=== PATIENT | female | born 1955 | race Caucasian/White ===

== ENCOUNTER 2023-06-27 19:37 | Emergency (ER) | payer MEDICARE, BC, SELFPAY ==
[2023-06-27 19:45] VITALS: BP 164/105; PULSE 67; RESP 14; TEMP 37.2; O2SAT 96; BMI 24.3
[2023-06-27] MEDS: cefTRIAXone 1 GM VIAL IM (20:22)
[2023-06-27] MEDS: LIDOCAINE 1% 5 ml (pf) 5 ML VIAL 2.1 ML IM (20:23)
--- NOTE | 2023-06-27 20:46 | ED.GENADULT ---
HPI - General Adult General Date Seen: 06/27/23 Chief complaint: Eye Problems Stated complaint: Left eye pain, allergic reaction to eye drops Time Seen by Provider: 06/27/23 19:41 Source: patient and family Mode of arrival: ambulatory Limitations: no limitations History of Present Illness HPI narrative: Patient is a 67-year-old female who comes in at the request of her eye doctor, Dr. Judd. Last evening she developed some eye irritation and excess watering. Throughout the day today she has had increasing pain, purulence, swelling. She had a online visit and was prescribed ofloxacin eye drops and Augmentin. When the pain and swelling continued to get worse she spoke with her eye doctor who instructor to come to the ER. He did call ahead with some instructions for me. He is requesting a Gram stain and culture along with a shot of Rocephin 1 g IM. He had hoped that we could get her started on Cipro ointment but we do not have any of that in the hospital she will have to wait until tomorrow morning to start. She is taking ibuprofen for pain. She has had no fevers or chills. The right eye is uninvolved. Related Data Home Medications Medication Instructions Recorded Confirmed cholecalciferol (vitamin D3) 25 25 mcg PO QDAY 01/14/22 06/27/23 mcg (1,000 unit) capsule venlafaxine 37.5 mg 75 mg PO DAILY 01/14/22 06/27/23 capsule,extended release 24 hr amoxicillin 875 mg-potassium 1 tab PO BID 06/27/23 06/27/23 clavulanate 125 mg tablet ofloxacin 0.3 % eye drops drp 06/27/23 Previous Rx's Medication Instructions Recorded ciprofloxacin HCl 0.3 % eye 1 applic ophthalmic (eye-left) TID 06/27/23 ointment 5 days #3.5 grams Allergies Allergy/AdvReac Type Severity Reaction Status Date / Time fluticasone [From Flonase] Allergy Unknown Verified 06/27/23 19:43 Review of Systems Narrative: Review of systems is outlined above otherwise noted to be negative. PFSH PFS Social History Smoking Status: Never smoker Exam Narrative: Exam Narrative: Vitals noted. HEENT: Right conjunctiva is clear. On the left she has significant chemosis and green drainage. She has minimal pain with extraocular movements. The tissue around the eye is red but not indurated. No regional adenopathy. Pupil is reactive. Tympanic membranes are pearly white bilaterally. Posterior pharynx is clear without erythema or exudate. Neck is supple without adenopathy. Lungs: Clear to auscultation in all lomas. No wheezes, rales, rhonchi. Heart: Regular rate and rhythm without murmur. Skin: No abnormalities noted of the exposed skin. Neurologic: Awake, alert, fully oriented. Neurologic exam is nonfocal. Const: Vital Signs, click to edit/add: Vital Signs - 24 hr 06/27/23 19:45 Temperature 98.9 F Pulse Rate [Pulse Oximeter] 67 Respiratory Rate 14 Blood Pressure [Le ft Upper Arm] 164/105 H Pulse Oximetry 96 Oxygen Delivery Me thod Room Air Course Course ED Course: Patient seen and examined. I took a culture and Gram stain of the drainage. She is given Rocephin 1 g IM. Vital Signs Vital signs: Initial Vital Signs Temperature 98.9 F 06/27/23 19:45 Temperature Source Temporal Artery Scan 06/27/23 19:45 Pulse Rate 67 06/27/23 19:45 Pulse Rhythm Regular 06/27/23 19:45 Respiratory Rate 14 06/27/23 19:45 Blood Pressure 164/105 H 06/27/23 19:45 Blood Pressure Mean 124 H 06/27/23 19:45 Blood Pressure Position Sitting 06/27/23 19:45 Pulse Oximetry 96 06/27/23 19:45 Oxygen Delivery Method Room Air 06/27/23 19:45 Vital Signs Temperature 98.9 F 06/27/23 19:45 Pulse Rate 67 06/27/23 19:45 Respiratory Rate 14 06/27/23 19:45 Blood Pressure 164/105 H 06/27/23 19:45 Pulse Oximetry 96 06/27/23 19:45 Oxygen Delivery Method Room Air 06/27/23 19:45 Temperature 98.9 F 06/27/23 19:45 Pulse Rate 67 06/27/23 19:45 Respiratory Rate 14 06/27/23 19:45 Blood Pressure 164/105 H 06/27/23 19:45 Pulse Oximetry 96 06/27/23 19:45 Oxygen Delivery Method Room Air 06/27/23 19:45 Medications Administered Medications: Generic Name Dose Route Start Last Admin Trade Name Freq PRN Reason Stop Dose Admin Lidocaine HCl 2.1 ml 06/27/23 19:48 06/27/23 20:23 Lidocaine 1% 5 Ml (Pf) 5 Ml Vial IM 2.1 ml DIRECTED PRN Administration Pain Discontinued Medications Generic Name Dose Route Start Last Admin Trade Name Freq PRN Reason Stop Dose Admin Ceftriaxone Sodium 1 gm 06/27/23 19:48 06/27/23 20:22 Ceftriaxone 1 Gm Vial IM 06/27/23 19:49 1 gm ONCE ONE Administration Discharge Plan Discharge Additional Instructions: Tomorrow you can resume Augmentin 875 mg twice daily. I will send prescription to [facility] for ciprofloxacin ointment to use 3 times daily. Hot packs. Follow-up with Dr. Judd tomorrow as scheduled. Tylenol or ibuprofen for pain. Prescriptions: New ciprofloxacin HCl 0.3 % ointment 1 applic ophthalmic (eye-left) TID 5 Days Qty: 3.5 0RF No Action cholecalciferol (vitamin D3) 25 mcg (1,000 unit) capsule 25 mcg PO QDAY venlafaxine 37.5 mg capsule,extended release 24hr 75 mg PO DAILY amoxicillin-pot clavulanate 875-125 mg tablet 1 tab PO BID ofloxacin 0.3 % drops Patient Comments: [NO ORIGINAL SIG] Follow Up/Referrals: Jadyn Garza PA [Primary Care Provider] - Stand Alone [facility] Inst[facility]
== END 2023-06-27 20:53 | disposition home or self-care (01) ==
PROVIDERS: Emergency Provider Family Medicine; PCP Physician Assistant
DX: H10.022 Other mucopurulent conjunctivitis, left eye (principal)
CPT/HCPCS: 87070; 87205; 96372; 99282; 99283; J0696